=== PATIENT | female | born 1980 | race Caucasian/White ===

== ENCOUNTER → 2017-02-09 | Outpatient (CLI) | payer BC ==
--- NOTE | 2017-02-09 10:25 | US ---
EXAMINATION TYPE: US pelvic complete DATE OF EXAM: 02/09/2017 COMPARISON: US & CT from 2015 CLINICAL HISTORY: D25.9 LEIOMYOA,R68.89 CERVIX DEVIATED. history of surgical removal of fibroid tumor s. TECHNIQUE: Transabdominal (TA) Date of LMP: 01/25/2017 EXAM MEASUREMENTS: Uterus: 10.9 x 5.7 x 6.3 cm Endometrial Stripe: 0.9 cm Right Ovary: 3.2 x 3.6 x 3.5 cm Left Ovary: 4.0 x 3.2 x 3.0 cm The previously seen large pelvic mass has been removed compatible to history provided of surgical rem oval of uterine fibroids. 1. Uterus: Anteverted right anterior 4.5 x 4.0 x 4.7 cm solid mass that is heterogenous but overal l isoechoic to the myometrium is seen most compatible with a subserosal leiomyoma. 2. Endometrium: wnl 3. Right Ovary: wnl 4. Left Ovary: 2.8 x 2.4 x 2.2 cm cyst 5. Bilateral Adnexa: small amount of free fluid adjacent to right ovary. 6. Posterior cul-de-sac: wnl IMPRESSION: 1. Subserosal right anterior 4.5 cm leiomyoma. 2. Small amount of right periorbital ovarian free fluid, likely physiologic. 3. Simple left ovarian cyst requiring no further follow-up.
--- NOTE | 2017-02-10 07:37 | WWHP ---
DATE OF SERVICE: 02/09/2017 CHIEF COMPLAINT: The patient is here for her routine gynecologic exam. HPI: This is a 36-year-old G0 with an LMP of 01/22/17. She is currently using condoms and spermicide for control. She has been off of control pills for about 8 months. She is without gynecologic complaints and states that her menses are regular every month. She is contemplating attempting in the near future. The patient has a history of a large uterine fibroid and is status post myomectomy in 2014. She denies any significant abdominal changes, which might suggest recurrence of the fibroid, but she would like to have her pelvic exam done to see if there is anything that would interfere with her plans on getting . PAST MEDICAL HISTORY: Seasonal allergies. MEDICATIONS: Poof-jub-yqyhnbm allergy pill p.r.n., also Tylenol PM p.r.n. ALLERGIES: COMPAZINE, which caused jaw muscle tightness. PAST SURGICAL HISTORY: She has had benign breast lumps removed x3 in her lifetime. Also, head a laparotomy and removal of a large fibroid in 2014. Also, wisdom teeth were removed. PAST GARAGE HELPER HISTORY: Menses are regular every month and she has no history of STDs. She did have a myomectomy in 2015. SOCIAL HISTORY: She denies tobacco and drug use and has about 4 alcoholic drinks per month. 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 PHYSICAL EXAM: Blood pressure is 143/97 with repeat blood pressure of 124/90. Height 5 feet 5 inches. Weight 165 pounds. Temperature 96.2. Pulse 101. This is a well-developed, well-nourish white female who is alert and oriented x3 in no acute distress. HEENT is within normal limits. NECK: Supple without mass or thyromegaly. CHEST AND LUNGS: Clear to auscultation. HEART: Regular rate and rhythm. Breasts are without mass or discharge. Axillary exam is negative for adenopathy. BACK: Negative for CVA tenderness. ABDOMEN: Soft, nontender without palpable masses. PELVIC EXAM: Normal external genitalia. Cervix and vagina reveal a cervix that is slightly deviated to the left. There are no lesions. There is no unusual discharge. There is no cervical motion tenderness. The uterus is slightly retroverted, nongravid size and nontender. There are no palpable adnexal masses or tenderness. Rectovaginal exam is negative for mass or tenderness. EXTREMITIES: Nontender. IMPRESSION: 1. A 36-year-old female with history of previous myomectomy for a very large fibroid in 2014. 2. Slightly deviated cervix, which goes to the left. This may be secondary to residual uterine fibroids or possible changes from the previous fibroid, which was already removed. 3. Mildly elevated blood pressure. 4. Patient is contemplating attempting in the near future. PLAN: 1. Pap smear was performed. 2. Self breast examination was discussed. 3. Pelvic ultrasound will be scheduled. She states she did have one ultrasound done after her surgery. If fibroids are noted, we should be able to compare this to her previous postop ultrasound. 4. We have had a long discussion regarding preconception planning. I have recommended that she have contact with the doctor that did her myomectomy to determine if the myomectomy involved full thickness, or near full thickness myomectomy which could require delivery by section if she does get . 5. I have recommended that she take a daily multivitamin with folic acid. I have also recommended that she look into the most recent recommendations on Zika virus testing and travel. She will see the CDC web site for the most current recommendations. 6. We have discussed advanced maternal age including the increasing risk for Down's syndrome with increasing maternal age. 7. She will return in one year or follow up with an TIRE FABRICATOR in one year or sooner if she does get . PARMJIT
== END | disposition home or self-care (01) ==
LOC: WWCWWP 08:22
PROVIDERS: ATTEND Obstetrics & Gynecology
DX: D25.2 Subserosal leiomyoma of uterus (principal); N83.202 Unspecified ovarian cyst, left side
CPT/HCPCS: 76856